=== PATIENT | female | born 2000 | race Caucasian/White ===

== ENCOUNTER 2021-08-17 16:22 | Emergency (ER) | payer OTHER, SELFPAY ==
[2021-08-17 17:09] VITALS: BP 138/82; PULSE 83; RESP 16; TEMP 36.9; O2SAT 98; BMI 34.4
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
== END 2021-08-17 18:05 | disposition home or self-care (01) ==
PROVIDERS: Emergency Provider Emergency Medicine
DX: S39.012A Strain of muscle, fascia and tendon of lower back, initial encounter (principal); V43.52XA Car driver injured in collision with other type car in traffic accident, initial encounter; Y93.89 Activity, other specified; Y92.414 Local residential or business street as the place of occurrence of the external cause; Y99.9 Unspecified external cause status
CPT/HCPCS: 99283